=== PATIENT | male | born 1960 | race Caucasian/White ===

== ENCOUNTER 2017-07-08 22:03 | Emergency (ER) | payer BC ==
[2017-07-09] MEDS: HYDROCODONE/APAP (5/325) TAB PO (00:15)
== END 2017-07-09 00:24 | disposition home or self-care (01) ==
LOC: FTE 07-09 00:24
DX: S92.514A Nondisplaced fracture of proximal phalanx of right lesser toe(s), initial encounter for closed fracture (principal); W22.8XXA Striking against or struck by other objects, initial encounter; Y92.89 Other specified places as the place of occurrence of the external cause
CPT/HCPCS: 73630; 99283-25